=== PATIENT | female | born 1990 | race Caucasian/White ===

== ENCOUNTER 2020-10-12 13:23 | Emergency (ER) | payer OTHER ==
[~2020-10-12] VITALS: Ht 160 cm; Wt 70.5 kg
[2020-10-12 13:24] VITALS: BP 130/76
--- NOTE | 2020-10-12 15:26 | REP ---
INDICATION: pain swelling COMPARISON: None. TECHNIQUE: There are four views. FINDINGS: There is no fracture or dislocation. Mineralization and joint spaces are normal. There is mild hallux valgus. There are no calcifications or foreign bodies. IMPRESSION: Mild hallux valgus. Otherwise, negative left foot. <Electronically signed by Prieto Miranda > 10/12/20 [id number]
[2020-10-12] MEDS ORDERED: IBUP-1022 PO (15:36)
== END 2020-10-12 16:00 | disposition home or self-care (01) ==
LOC: M ED 13:23
DX: S96.912A Strain of unspecified muscle and tendon at ankle and foot level, left foot, initial encounter (principal); W19.XXXA Unspecified fall, initial encounter; Y92.9 Unspecified place or not applicable; Y93.9 Activity, unspecified; Y99.9 Unspecified external cause status

== ENCOUNTER 2020-10-28 13:15 | Outpatient (RCR) | payer OTHER ==
[~2020-10-28 13:15] MED LIST: IBUP-1022 PO
== END 2020-11-11 ==
LOC: M PT 13:15
PROVIDERS: ATTEND Internal Medicine
DX: M25.511 Pain in right shoulder (principal); M54.2 Cervicalgia

== ENCOUNTER 2020-11-30 13:58 | Outpatient (RCR) | payer OTHER | END 2020-12-12 | LOC: M PT 13:58 | PROVIDERS: ATTEND Internal Medicine | DX: M54.2 Cervicalgia (principal); M25.511 Pain in right shoulder ==

== ENCOUNTER 2020-12-14 13:30 | Outpatient (RCR) | payer OTHER | END 2021-01-11 | LOC: M PT 13:30 | PROVIDERS: ATTEND Internal Medicine | DX: M54.2 Cervicalgia (principal); M25.511 Pain in right shoulder ==

== ENCOUNTER → 2021-12-23 | Outpatient (REF) | payer OTHER ==
[2021-12-23 15:02] LABS: APPEARANCE, URINE MANUAL CLOUDY (CLEAR); COLOR, URINE MANUAL ORANGE (YELLOW); GLUCOSE, URINE (UA) MANUAL OBSCURED mg/dL (NEGATIVE); KETONE, URINE MANUAL OBSCURED mg/dL (NEGATIVE); PROTEIN, URINE MANUAL OBSCURED mg/dL (NEGATIVE); UROBILINOGEN, URINE MANUAL OBSCURED mg/dl (NORMAL)
[2021-12-23 15:03] LABS: BILIRUBIN, URINE MANUAL OBSCURED (NEGATIVE); BLOOD URINE MANUAL POSITIVE (NEGATIVE); LEUKOCYTE ESTERASE, URINE MAN OBSCURED (NEGATIVE); NITRITE, URINE MANUAL OBSCURED (NEGATIVE)
[2021-12-23 15:10] LABS: BACTERIA, URINE LARGE AMOUNT; WBC, URINE TNTC /hpf (0-3)
[2021-12-23 15:11] LABS: HYALINE CAST, URINE NONE SEEN /lpf (0-1); SQUAMOUS EPITHELIAL CELL URINE MOD AMOUNT /hpf (SMALL AMT)
[2021-12-23 15:12] LABS: MUCUS, URINE SMALL AMOUNT (NEGATIVE)
== END ==
LOC: M LAB REF 14:49
PROVIDERS: ATTEND Physician Assistant
DX: N39.0 Urinary tract infection, site not specified (principal)

== ENCOUNTER 2022-06-02 16:03 | Emergency (ER) | payer OTHER ==
[~2022-06-02] VITALS: Ht 160 cm; Wt 61.4 kg
[2022-06-02 16:04] VITALS: BP 117/77
[2022-06-02 17:47] LABS: RSV AMPLIFICATION NEGATIVE (NEGATIVE)
== END 2022-06-03 00:15 | disposition left against medical advice (07) ==
LOC: M ED 16:03
DX: Z53.21 Procedure and treatment not carried out due to patient leaving prior to being seen by health care provider (principal)

== ENCOUNTER 2022-10-09 01:52 | Emergency (ER) | payer OTHER ==
[~2022-10-09] VITALS: Ht 160 cm; Wt 64.0 kg
[2022-10-09 01:52] VITALS: BP 126/70
== END 2022-10-09 03:45 | disposition left against medical advice (07) ==
LOC: M ED 01:52
DX: Z53.21 Procedure and treatment not carried out due to patient leaving prior to being seen by health care provider (principal)